=== PATIENT | male | born 1950 | race Caucasian/White ===

== ENCOUNTER → 2016-11-15 | Outpatient (CLI) | payer BC ==
--- NOTE | 2016-11-15 12:37 | DI ---
XR WRIST COMPLETE MIN 3VW,11/15/2016 8:33 AM: Clinical History: Left wrist arthrosis. Previous Exam: None at this facility. Findings: 4 views of the left wrist are obtained, and demonstrate postsurgical changes consistent with effusion of the left wrist. There is also fusion of the first carpometacarpal joint. There is overlying densi ty within the joint which makes evaluation limited. There are bone grafts noted of the distal radius as well. There is postsurgical change consistent with a distal left ulnar osteotomy. Impression: Postsurgical changes as above with limited visualization on this exam.
== END ==
LOC: RAD 08:29
PROVIDERS: ATTEND Plastic Surgery
DX: Z47.89 Encounter for other orthopedic aftercare (principal); M25.432 Effusion, left wrist; Z98.1 Arthrodesis status
CPT/HCPCS: 73110

== ENCOUNTER → 2016-11-30 | Outpatient (CLI) | payer BC ==
[2016-11-30 09:33] LABS: LDL CHOLESTEROL,CALCULATED 76.8 mg/dL
== END ==
LOC: LAB 08:55
PROVIDERS: ATTEND Internal Medicine Cardiovascular Disease
DX: E78.00 Pure hypercholesterolemia, unspecified (principal)
CPT/HCPCS: 36415; 80061